=== PATIENT | female | born 1985 | race Two or more races ===

== ENCOUNTER 2017-01-27 15:28 | Emergency (ER) | payer MEDICAID ==
[~2017-01-27] VITALS: Ht 154.9 cm; Wt 72.6 kg
[2017-01-27 15:51] VITALS: BP 131/90
[2017-01-27] MEDS: ONDANSETRON HCL 4 MG/2 ML VIAL IM ONE (16:15)
[2017-01-27] MEDS: SUMAtriptan SUCCINATE 6 MG/0.5 ML VL SC ONE (16:15)
[2017-01-27] MEDS: HYDROmorphone HCL 2 MG/ML VL IM ONE (16:16)
== END 2017-01-27 17:33 | disposition home or self-care (01) ==
LOC: ER 15:32
DX: G43.909 Migraine, unspecified, not intractable, without status migrainosus (principal); J01.10 Acute frontal sinusitis, unspecified
CPT/HCPCS: 70450; 96372; 99284; J1170; J2405; J3030